=== PATIENT | male | born 1995 | race Caucasian/White ===

== ENCOUNTER 2022-12-08 17:44 | Emergency (ER) | payer OTHER ==
[~2022-12-08] VITALS: Ht 180.3 cm; Wt 68.0 kg
== END 2022-12-08 18:56 | disposition left against medical advice (07) ==
LOC: ED 17:44
DX: R20.0 Anesthesia of skin (principal); R20.2 Paresthesia of skin; R25.2 Cramp and spasm; Z53.21 Procedure and treatment not carried out due to patient leaving prior to being seen by health care provider

== ENCOUNTER 2022-12-16 07:50 | Emergency (ER) | payer OTHER ==
[~2022-12-16] VITALS: Ht 180.3 cm; Wt 68.0 kg
[2022-12-16] MEDS ORDERED: AMOX-CLAV 875-1 EACH PO ×2 (08:25→08:41)
== END 2022-12-16 08:28 | disposition home or self-care (01) ==
LOC: ED 07:50
DX: K04.7 Periapical abscess without sinus (principal); F17.210 Nicotine dependence, cigarettes, uncomplicated